=== PATIENT | male | born 2000 | race African-American/Black ===

== ENCOUNTER 2020-08-02 18:57 | Emergency (ER) | payer OTHER, SELFPAY ==
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
[2020-08-02 19:09] VITALS: BP 137/80; PULSE 83; RESP 18; TEMP 37.1; O2SAT 100
[2020-08-02 19:16] VITALS: BP 125/85; PULSE 79; RESP 18; O2SAT 100
[2020-08-02] MEDS: Please add drug allergy info to patient profile. 1 EACH XX (19:43)
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
[2020-08-02] MEDS: KETOROLAC 30 MG/ML VIAL (*BKC) IV PUSH (20:26)
[2020-08-02 21:59] VITALS: BP 135/99; RESP 77; O2SAT 100
== END 2020-08-02 20:36 | disposition home or self-care (01) ==
LOC: ANHED 20:25
PROVIDERS: Emergency Provider Emergency Medicine
DX: S00.81XA Abrasion of other part of head, initial encounter (principal); M25.561 Pain in right knee; M54.5 Low back pain; V49.40XA Driver injured in collision with unspecified motor vehicles in traffic accident, initial encounter
CPT/HCPCS: 72100; 73562; 96374; 96375; 99284; J0131; J1885

== ENCOUNTER 2020-08-18 13:39 | Emergency (ER) | payer OTHER, SELFPAY ==
--- NOTE | ~2020-08-18 | XR_ITS ---
EXAMINATION: XR lumbar spine min 4V DATE: 08/18/2020 14:25 INDICATION: Low back pain. TECHNIQUE: 5 views of lumbar spine were obtained. COMPARISON: Lumbar spine radiographs 08/02/2020 FINDINGS: There is 7 degrees levocurvature of lumbar spine. Vertebral body heights and intervertebral disc heights are normal. The facet joints are normal. IMPRESSION: 1. Lumbar levocurvature. Reviewed, dictated and finalized at location B. R [employer] RE[employer] IMPRESSION: 1. Lumbar levocurvature.
[2020-08-18 13:46] VITALS: BP 113/67; PULSE 111; RESP 18; TEMP 37.3; O2SAT 97
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
== END 2020-08-18 14:52 | disposition home or self-care (01) ==
PROVIDERS: Emergency Provider Emergency Medicine
DX: R51.9 Headache, unspecified (principal); M54.5 Low back pain
CPT/HCPCS: 72110; 99283